=== PATIENT | female | born 1985 | race African-American/Black ===

== ENCOUNTER 2021-06-21 09:52 | Emergency (ER) | payer SELFPAY ==
[~2021-06-21] VITALS: Ht 172.7 cm; Wt 100.0 kg
[2021-06-21 09:54] VITALS: BP 145/98
[2021-06-21] MEDS ORDERED: IPRATROPIUM BROMIDE (0.02%) 0.5MG/2.5ML NEB HHN STA (10:08)
[2021-06-21] MEDS ORDERED: PREDNISONE 20MG TABLET PO ONE (10:15)
[2021-06-21] MEDS ORDERED: ALBUTEROL (0.083%) 2.5MG/3ML NEB HHN SCH (10:30)
[2021-06-21] MEDS ORDERED: ALBU6.7H9 INH (11:29)
[2021-06-21] MEDS ORDERED: ALBU05 NEB (11:29)
[2021-06-21] MEDS ORDERED: P50 MT (11:29)
== END 2021-06-21 11:55 | disposition home or self-care (01) ==
LOC: ER 09:52
DX: J45.901 Unspecified asthma with (acute) exacerbation (principal); Z98.890 Other specified postprocedural states
CPT/HCPCS: 99283; J7512